=== PATIENT | male | born 1965 | race African-American/Black ===

== ENCOUNTER 2019-01-14 07:52 | Emergency (ER) | payer MEDICAID | END 2019-01-14 08:43 | disposition left against medical advice (07) | LOC: ER 07:52 | DX: Z53.21 Procedure and treatment not carried out due to patient leaving prior to being seen by health care provider (principal) ==

== ENCOUNTER 2019-01-15 07:16 | Emergency (ER) | payer MEDICAID ==
[~2019-01-15] VITALS: Ht 170.2 cm; Wt 83.0 kg
[2019-01-15 09:23] VITALS: BP 138/60
== END 2019-01-15 09:24 | disposition home or self-care (01) ==
LOC: ER 07:16
DX: S80.812A Abrasion, left lower leg, initial encounter (principal); E11.65 Type 2 diabetes mellitus with hyperglycemia; I10 Essential (primary) hypertension; F17.200 Nicotine dependence, unspecified, uncomplicated; Z79.899 Other long term (current) drug therapy; W18.39XA Other fall on same level, initial encounter; Y93.89 Activity, other specified; Y92.89 Other specified places as the place of occurrence of the external cause; Y99.8 Other external cause status
CPT/HCPCS: 82962; 99283